=== PATIENT | male | born 1960 | race African-American/Black ===

== ENCOUNTER 2016-09-23 07:03 | Day surgery (SDC) | payer BC ==
[2016-09-19 10:10] VITALS: BMI 30.5
[2016-09-23] MEDS ORDERED: PROPOFOL 20 ML ONE ×2 (07:09)
[2016-09-23] MEDS ORDERED: LIDOCAINE HCL/PF 2% SDV 5ML VIAL ONE (07:44)
[2016-09-23 09:13] VITALS: TEMP 97.9
[2016-09-23 09:14] VITALS: BP 117/62; PULSE 88
--- NOTE | 2016-09-24 10:40 | PATH ---
Surgical Pathology Report Patient Name: CHARANJIT AKERS [facility]. Rec. #: [id number] /Age/Gender: 1960 (Age: 55) / M Account: [id number] Location: [facility]-ENDOSCOPY Taken: 09/23/2016 Received: 09/23/2016 Reported: 09/24/2016 Physicians: Pj Maguire M.D. Specimen(s) Received BX RECTO SIGMOID Clinical History Rule out colon cancer Polyp Final Diagnosis COLON, RECTOSIGMOID, BIOPSY: HYPERPLASTIC POLYP. Electronically Signed Tristen Alejo M.D. Gross Description Received in formalin, labeled "rectosigmoid" is a mireles, polypoid portion of soft tissue measuring 0.4 cm. in greatest dimension. The specimen is submitted in toto in one cassette. /09/23/201609/23/2016
== END 2016-09-23 09:15 | disposition home or self-care (01) ==
LOC: FASU-ENDO 07:03
PROVIDERS: ATTEND Internal Medicine Gastroenterology
PROC: 0DBN8ZX Excision of Sigmoid Colon, Via Natural or Artificial Opening Endoscopic, Diagnostic (ICD-10-PCS; principal; 2016-09-23 08:33)
DX: Z12.11 Encounter for screening for malignant neoplasm of colon (principal); Z80.0 Family history of malignant neoplasm of digestive organs; K63.5 Polyp of colon
CPT/HCPCS: 88305-TC